=== PATIENT | female | born 1945 | race Caucasian/White ===

== ENCOUNTER 2018-07-30 01:12 | Emergency (ER) | payer MEDICARE ==
[~2018-07-30] VITALS: Ht 157.5 cm; Wt 80.0 kg
[~2018-07-30 01:12] MED LIST: ALTACE5 M1 PO; BUFFERIN LOW81 MG PO; GARLIC1000 MG OR; GLYCRON6 MG OR; IRON325 MG OR; MAXZIDE-2537.5 MG/TA PO; METFORMIN1000 MG PO; MOBIC7.5 MG PO; MULT VITAMIN OR; PRAVASTATIN80 MG PO; TYLENOL500 MG OR; tylenol#3 OR
[2018-07-30 01:34] LABS: HEMATOCRIT 36.2 % (37.0-47.0); HEMOGLOBIN 12.3 g/dl (12.0-16.0); IMMATURE GRANULOCYTES 0.4 % (0.0-5.0); MEAN CELL VOLUME 89.8 fL CALC (80.0-100.0); MEAN CORPUSCULAR HGB 30.5 pG CALC (26.0-32.0); NEUT# 6.67 thou/uL (2.00-7.15); RED BLOOD COUNT 4.03 mill/uL (4.20-5.60); RED CELL DISTRI WIDTH 12.9 % (11.5-15.5)
[2018-07-30] MEDS ORDERED: DILTIAZEM HCL240 MG PO (01:39)
[2018-07-30] MEDS ORDERED: LOSARTAN POT50 MG PO (01:40)
[2018-07-30] MEDS ORDERED: FUROSEMIDE20 MG PO (01:40)
[2018-07-30] MEDS ORDERED: WARFARIN3 MG PO (01:40)
[2018-07-30] MEDS ORDERED: LEVEMIR FL100 UNIT/M SC (01:42)
[2018-07-30 01:46] LABS: ALBUMIN 3.4 g/dL (3.2-5.0); BILIRUBIN, TOTAL 0.6 mg/dL (0.0-1.4); CREATININE 1.9 mg/dL (0.5-1.0); POTASSIUM 4.2 mmol/l (3.5-5.1); TOTAL PROTEIN 5.8 g/dL (6.3-8.2)
[2018-07-30 01:51] LABS: ACT PARTIAL THROMBO TIME 23.4 SECONDS (20.0-32.5); INTERNATIONAL NORMALIZED RATIO 0.9 RATIO (0.7-1.3); PROTHROMBIN TIME 9.5 SECONDS (9.0-12.5)
[2018-07-30 02:40] VITALS: BP 209/100
== END 2018-07-30 03:00 | disposition short-term general hospital (02) ==
LOC: ED 01:12
PROVIDERS: Emergency Medicine
DX: I16.0 Hypertensive urgency (principal); I11.0 Hypertensive heart disease with heart failure; I50.9 Heart failure, unspecified; R74.8 Abnormal levels of other serum enzymes; E11.9 Type 2 diabetes mellitus without complications; R06.02 Shortness of breath

== ENCOUNTER → 2018-09-03 | Outpatient (REF) | payer MEDICARE ==
[~2018-09-03] MED LIST changes: +DILTIAZEM HCL240 MG PO; +FUROSEMIDE20 MG PO; +LEVEMIR FL100 UNIT/M SC; +LOSARTAN POT50 MG PO; +WARFARIN3 MG PO
[2018-09-03 08:11] LABS: HEMATOCRIT 33.1 % (37.0-47.0); HEMOGLOBIN 11.2 g/dl (12.0-16.0); IMMATURE GRANULOCYTES 0.4 % (0.0-5.0); MEAN CORPUSCULAR HGB 30.1 pG CALC (26.0-32.0); MEAN CORPUSCULAR HGB CONC 33.8 g/L CALC (32.0-36.0); NEUT# 5.25 thou/uL (2.00-7.15); RED BLOOD COUNT 3.72 mill/uL (4.20-5.60); RED CELL DISTRI WIDTH 12.7 % (11.5-15.5)
[2018-09-03 08:54] LABS: URINE BILIRUBIN - DIPSTICK NEGATIVE (NEGATIVE); URINE BLOOD DIPSTICK NEGATIVE (NEGATIVE); URINE CLARITY CLEAR; URINE COLOR YELLOW; URINE GLUCOSE - DIPSTICK NEGATIVE (NEGATIVE); URINE KETONE NEGATIVE (NEGATIVE); URINE LEUK ESTERASE TRACE (Negative); URINE NITRITE - DIPSTICK NEGATIVE (Negative); URINE PH 5.5 (4.5-8.0); URINE PROTEIN - DIPSTICK >=300 mg/dL (NEG-TRACE); URINE UROBILINOGEN - DIPSTICK 0.2 E.U./dL (0.2)
[2018-09-03 09:03] LABS: URINE RBC 0-2 RBC/hpf (0-5); URINE SQUAMOUS EPITHELIAL CELL FEW EPI/hpf (0-FEW)
[2018-09-03 09:04] LABS: URINE BACTERIA FEW hpf
[2018-09-03 09:16] LABS: ALBUMIN 3.6 g/dL (3.2-5.0); POTASSIUM 4.1 mmol/l (3.5-5.1)
== END | disposition home or self-care (01) ==
LOC: LAB 07:36
PROVIDERS: ATTEND Internal Medicine Nephrology
DX: N18.3 Chronic kidney disease, stage 3 (moderate) (principal); D63.1 Anemia in chronic kidney disease; N25.81 Secondary hyperparathyroidism of renal origin

== ENCOUNTER 2018-12-22 17:25 | Observation (INO) | payer MEDICARE ==
[~2018-12-22] VITALS: Ht 157.5 cm; Wt 79.5 kg
[2018-12-22] MEDS ORDERED: COUMADIN5 MG PO (17:45)
[2018-12-22] MEDS ORDERED: LEVEMIR100 UNIT/M SC (17:45)
[2018-12-22] MEDS ORDERED: VITAMIN B-12500 MCG PO (17:48)
[2018-12-22 17:59] LABS: HEMATOCRIT 31.9 % (37.0-47.0); HEMOGLOBIN 10.9 g/dl (12.0-16.0); IMMATURE GRANULOCYTES 0.4 % (0.0-5.0); MEAN CELL VOLUME 85.8 fL CALC (80.0-100.0); MEAN CORPUSCULAR HGB 29.3 pG CALC (26.0-32.0); MEAN CORPUSCULAR HGB CONC 34.2 g/L CALC (32.0-36.0); NEUT# 5.86 thou/uL (2.00-7.15); RED BLOOD COUNT 3.72 mill/uL (4.20-5.60); RED CELL DISTRI WIDTH 12.4 % (11.5-15.5)
[2018-12-22 18:15] LABS: ALBUMIN 3.9 g/dL (3.2-5.0); BILIRUBIN, TOTAL 0.4 mg/dL (0.0-1.4); CREATININE 2.2 mg/dL (0.5-1.0); POTASSIUM 3.9 mmol/l (3.5-5.1); TOTAL PROTEIN 6.3 g/dL (6.3-8.2)
[2018-12-22] MEDS ORDERED: FERRAPLUS 90 PO (18:24)
[2018-12-22] MEDS ORDERED: CENTRUM PO (18:25)
[2018-12-22] MEDS ORDERED: CARVEDILOL25 MG PO (18:27)
[2018-12-22] MEDS ORDERED: TYLENOL 500MG TAB PO (18:27)
[2018-12-22] MEDS ORDERED: HYDRALAZINE25 MG PO (18:28)
[2018-12-22] MEDS ORDERED: DILT-XR240 MG PO (18:29)
[2018-12-22] MEDS ORDERED: FUROSEMIDE20 MG PO (18:29)
[2018-12-22 18:30] LABS: INTERNATIONAL NORMALIZED RATIO 1.4 RATIO (0.7-1.3); PROTHROMBIN TIME 14.7 SECONDS (9.0-12.5)
[2018-12-22 18:49] LABS: URINE BILIRUBIN - DIPSTICK NEGATIVE (NEGATIVE); URINE BLOOD DIPSTICK TRACE-INTACT (NEGATIVE); URINE COLOR YELLOW; URINE GLUCOSE - DIPSTICK >=1000 mg/dL (NEGATIVE); URINE KETONE NEGATIVE (NEGATIVE); URINE LEUK ESTERASE NEGATIVE (NEGATIVE); URINE NITRITE - DIPSTICK NEGATIVE (Negative); URINE PH 5.5 (4.5-8.0); URINE PROTEIN - DIPSTICK 100 mg/dL (NEG-TRACE); URINE UROBILINOGEN - DIPSTICK 0.2 E.U./dL (0.2)
[2018-12-22 18:58] LABS: URINE SQUAMOUS EPITHELIAL CELL FEW EPI/hpf (0-FEW); URINE WBC 0-2 WBC/hpf (0-5)
[2018-12-22 20:48] VITALS: BP 142/57
[2018-12-23 04:00] VITALS: BP 159/69
[2018-12-23 05:27] LABS: INTERNATIONAL NORMALIZED RATIO 1.5 RATIO (0.7-1.3); PROTHROMBIN TIME 15.6 SECONDS (9.0-12.5)
[2018-12-23 07:47] VITALS: BP 158/68
[2018-12-23 08:08] VITALS: BP 158/68
== END 2018-12-23 14:40 | disposition home or self-care (01) ==
LOC: ED 17:25 → ED-I 18:53 → ED 19:09 → MS2 19:10
PROVIDERS: Emergency Medicine; ADMIT Internal Medicine; ATTEND Internal Medicine
DX: E11.65 Type 2 diabetes mellitus with hyperglycemia (principal); E11.22 Type 2 diabetes mellitus with diabetic chronic kidney disease; I12.9 Hypertensive chronic kidney disease with stage 1 through stage 4 chronic kidney disease, or unspecified chronic kidney disease; N18.3 Chronic kidney disease, stage 3 (moderate); E11.40 Type 2 diabetes mellitus with diabetic neuropathy, unspecified; I25.10 Atherosclerotic heart disease of native coronary artery without angina pectoris; M19.90 Unspecified osteoarthritis, unspecified site; I48.2 Chronic atrial fibrillation; E78.5 Hyperlipidemia, unspecified; R80.9 Proteinuria, unspecified; I25.2 Old myocardial infarction; Z91.11 Patient's noncompliance with dietary regimen; Z79.4 Long term (current) use of insulin

== ENCOUNTER 2018-12-25 18:40 | Emergency (ER) | payer MEDICARE ==
[~2018-12-25] VITALS: Ht 157.5 cm; Wt 75.0 kg
[~2018-12-25 18:40] MED LIST changes: +CARVEDILOL25 MG PO; +CENTRUM PO; +COUMADIN5 MG PO; +DILT-XR240 MG PO; +FERRAPLUS 90 PO; +HYDRALAZINE25 MG PO; +LEVEMIR100 UNIT/M SC; +TYLENOL 500MG TAB PO; +VITAMIN B-12500 MCG PO
[2018-12-25 19:26] LABS: HEMATOCRIT 29.8 % (37.0-47.0); HEMOGLOBIN 10.2 g/dl (12.0-16.0); IMMATURE GRANULOCYTES 0.4 % (0.0-5.0); MEAN CELL VOLUME 86.9 fL CALC (80.0-100.0); MEAN CORPUSCULAR HGB 29.7 pG CALC (26.0-32.0); MEAN CORPUSCULAR HGB CONC 34.2 g/L CALC (32.0-36.0); NEUT# 4.99 thou/uL (2.00-7.15); RED BLOOD COUNT 3.43 mill/uL (4.20-5.60); RED CELL DISTRI WIDTH 12.7 % (11.5-15.5)
[2018-12-25 19:36] LABS: INTERNATIONAL NORMALIZED RATIO 1.8 RATIO (0.7-1.3)
[2018-12-25 19:38] LABS: ALBUMIN 3.3 g/dL (3.2-5.0); BILIRUBIN, TOTAL 0.3 mg/dL (0.0-1.4); CREATININE 2.2 mg/dL (0.5-1.0); POTASSIUM 4.2 mmol/l (3.5-5.1); TOTAL PROTEIN 5.4 g/dL (6.3-8.2)
[2018-12-25 21:41] LABS: URINE BILIRUBIN - DIPSTICK NEGATIVE (NEGATIVE); URINE BLOOD DIPSTICK NEGATIVE (NEGATIVE); URINE COLOR YELLOW; URINE GLUCOSE - DIPSTICK 250 mg/dL (NEGATIVE); URINE KETONE NEGATIVE (NEGATIVE); URINE LEUK ESTERASE NEGATIVE (NEGATIVE); URINE NITRITE - DIPSTICK NEGATIVE (Negative); URINE PROTEIN - DIPSTICK 100 mg/dL (NEG-TRACE); URINE SPECIFIC GRAVITY 1.015; URINE UROBILINOGEN - DIPSTICK 0.2 E.U./dL (0.2)
[2018-12-25 21:42] LABS: URINE EPITHELIAL CELLS FEW EPI/hpf (0-FEW); URINE MUCUS MODERATE hpf (NONE-FEW)
[2018-12-25 22:16] VITALS: BP 156/68
== END 2018-12-25 22:39 | disposition home or self-care (01) ==
LOC: ED 18:40
PROVIDERS: Family Medicine
DX: E11.65 Type 2 diabetes mellitus with hyperglycemia (principal); I10 Essential (primary) hypertension; I25.2 Old myocardial infarction; Z79.4 Long term (current) use of insulin

== ENCOUNTER 2020-07-18 21:34 | Emergency (ER) | payer MEDICARE ==
[~2020-07-18] VITALS: Ht 157.5 cm; Wt 94.0 kg
[2020-07-18] MEDS ORDERED: LEVEMIR100 UNIT/M SC (22:18)
[2020-07-18 22:22] LABS: HEMATOCRIT 26.5 % (37.0-47.0); HEMOGLOBIN 8.7 g/dl (12.0-16.0); IMMATURE GRANULOCYTES 0.6 % (0.0-5.0); MEAN CELL VOLUME 91.7 fL CALC (80.0-100.0); MEAN CORPUSCULAR HGB 30.1 pG CALC (26.0-32.0); MEAN CORPUSCULAR HGB CONC 32.8 g/dL CAL (32.0-36.0); NEUT# 7.48 thou/uL (2.00-7.15); RED BLOOD COUNT 2.89 mill/uL (4.20-5.60); RED CELL DISTRI WIDTH 13.2 % (11.5-15.5)
[2020-07-18 22:41] LABS: ALBUMIN 3.7 g/dL (3.2-5.0); BILIRUBIN, TOTAL 0.4 mg/dL (0.0-1.4); CREATININE 2.9 mg/dL (0.5-1.0); POTASSIUM 4.5 mmol/l (3.5-5.1); TOTAL PROTEIN 5.8 g/dL (6.3-8.2)
[2020-07-18 22:44] LABS: PROTHROMBIN TIME 9.9 SECONDS (9.0-12.5)
[2020-07-19] MEDS ORDERED: MECLIZINE25 MG PO (02:06)
[2020-07-19 08:15] VITALS: BP 154/66
== END 2020-07-19 08:15 | disposition home or self-care (01) ==
LOC: ED 21:34
PROVIDERS: Family Medicine
DX: R42 Dizziness and giddiness (principal); E11.9 Type 2 diabetes mellitus without complications; I10 Essential (primary) hypertension; I48.91 Unspecified atrial fibrillation; I25.2 Old myocardial infarction; Z79.4 Long term (current) use of insulin

== ENCOUNTER 2020-12-08 04:22 | Emergency (ER) | payer MEDICARE ==
[~2020-12-08] VITALS: Ht 157.5 cm; Wt 95.0 kg
[~2020-12-08 04:22] MED LIST changes: -COUMADIN5 MG PO; +MECLIZINE25 MG PO; +WARFARIN5 MG PO
[2020-12-08] MEDS ORDERED: WARFARIN5 MG PO (04:47)
[2020-12-08] MEDS ORDERED: TRAMADOL HCL50 MG PO (05:40)
[2020-12-08 05:55] VITALS: BP 189/58
== END 2020-12-08 06:30 | disposition home or self-care (01) ==
LOC: ED 04:22
DX: M25.562 Pain in left knee (principal); E11.9 Type 2 diabetes mellitus without complications; I10 Essential (primary) hypertension; I48.91 Unspecified atrial fibrillation; I25.2 Old myocardial infarction; Z86.14 Personal history of Methicillin resistant Staphylococcus aureus infection; Z79.4 Long term (current) use of insulin; Z96.652 Presence of left artificial knee joint

== ENCOUNTER 2021-08-13 18:05 | Emergency (ER) | payer MEDICARE ==
[~2021-08-13] VITALS: Ht 157.5 cm; Wt 86.0 kg
[~2021-08-13 18:05] MED LIST changes: +LEVEMIR100 UNIT SC; +TRAMADOL HCL50 MG PO
[2021-08-13 19:00] LABS: HEMATOCRIT 28.9 % (37.0-47.0); HEMOGLOBIN 9.7 g/dl (12.0-16.0); IMMATURE GRANULOCYTES 0.2 % (0.0-5.0); MEAN CELL VOLUME 89.5 fL CALC (80.0-100.0); MEAN CORPUSCULAR HGB CONC 33.6 g/dL CAL (32.0-36.0); RED BLOOD COUNT 3.23 mill/uL (4.20-5.60)
[2021-08-13 19:01] LABS: URINE BILIRUBIN - DIPSTICK NEGATIVE (NEGATIVE); URINE BLOOD DIPSTICK TRACE-INTACT (NEGATIVE); URINE COLOR YELLOW; URINE GLUCOSE - DIPSTICK NEGATIVE (NEGATIVE); URINE KETONE NEGATIVE (NEGATIVE); URINE PH 5.5 (4.5-8.0); URINE PROTEIN - DIPSTICK 100 mg/dL (NEG-TRACE); URINE UROBILINOGEN - DIPSTICK 0.2 E.U./dL (0.2)
[2021-08-13 19:02] LABS: URINE LEUK ESTERASE SMALL (NEGATIVE); URINE NITRITE - DIPSTICK NEGATIVE (Negative)
[2021-08-13 19:12] LABS: URINE SQUAMOUS EPITHELIAL CELL FEW EPI/hpf (0-FEW)
[2021-08-13 19:19] LABS: ALBUMIN 3.6 g/dL (3.2-5.0); BILIRUBIN, TOTAL 0.5 mg/dL (0.0-1.4); CREATININE 3.3 mg/dL (0.5-1.0); POTASSIUM 4.1 mmol/l (3.5-5.1); TOTAL PROTEIN 6.3 g/dL (6.3-8.2)
[2021-08-13 19:41] LABS: INTERNATIONAL NORMALIZED RATIO 3.8 RATIO (0.7-1.3); PROTHROMBIN TIME 36.2 SECONDS (9.0-12.5)
[2021-08-13] MEDS ORDERED: ZOFRAN4 MG/TAB PO (20:44)
[2021-08-13] MEDS ORDERED: KEFLEX500 MG PO (20:44)
[2021-08-13] MEDS ORDERED: ULTRAM50 MG PO ×2 (20:44→21:23)
[2021-08-13 21:15] VITALS: BP 177/75
== END 2021-08-13 21:15 | disposition home or self-care (01) ==
LOC: ED 18:05
PROVIDERS: Family Medicine
DX: N39.0 Urinary tract infection, site not specified (principal); B96.20 Unspecified Escherichia coli [E. coli] as the cause of diseases classified elsewhere; N28.9 Disorder of kidney and ureter, unspecified; D64.9 Anemia, unspecified; I10 Essential (primary) hypertension; E11.9 Type 2 diabetes mellitus without complications; I25.2 Old myocardial infarction; I48.91 Unspecified atrial fibrillation; Z86.14 Personal history of Methicillin resistant Staphylococcus aureus infection; Z79.4 Long term (current) use of insulin

== ENCOUNTER 2021-08-20 17:19 | Emergency (ER) | payer MEDICARE ==
[~2021-08-20] VITALS: Ht 157.5 cm; Wt 87.0 kg
[~2021-08-20 17:19] MED LIST changes: +KEFLEX500 MG PO; +ULTRAM50 MG PO; +ZOFRAN4 MG/TAB PO
[2021-08-20 19:05] LABS: IMMATURE GRANULOCYTES 0.6 % (0.0-5.0); MEAN CORPUSCULAR HGB 30.9 pG CALC (26.0-32.0); MEAN CORPUSCULAR HGB CONC 32.1 g/dL CAL (32.0-36.0); NEUT# 8.79 thou/uL (2.00-7.15); RED BLOOD COUNT 1.65 mill/uL (4.20-5.60); RED CELL DISTRI WIDTH 17.6 % (11.5-15.5)
[2021-08-20 19:07] LABS: HEMOGLOBIN 5.1 g/dl (12.0-16.0); MEAN CELL VOLUME 96.4 fL CALC (80.0-100.0)
[2021-08-20 19:08] LABS: HEMATOCRIT 15.9 % (37.0-47.0)
[2021-08-20 19:19] LABS: ACT PARTIAL THROMBO TIME 33.5 SECONDS (20.0-32.5); INTERNATIONAL NORMALIZED RATIO 3.5 RATIO (0.7-1.3); PROTHROMBIN TIME 33.5 SECONDS (9.0-12.5)
[2021-08-20 19:32] LABS: ALBUMIN 3.2 g/dL (3.2-5.0); BILIRUBIN, TOTAL 0.3 mg/dL (0.0-1.4); MAGNESIUM 1.9 mg/dL (1.6-2.3); POTASSIUM 4.2 mmol/l (3.5-5.1); TOTAL PROTEIN 5.7 g/dL (6.3-8.2)
[2021-08-20 19:34] LABS: CREATININE 4.5 mg/dL (0.5-1.0)
[2021-08-20 20:43] LABS: URINE BILIRUBIN - DIPSTICK NEGATIVE (NEGATIVE); URINE BLOOD DIPSTICK SMALL (NEGATIVE); URINE COLOR YELLOW; URINE GLUCOSE - DIPSTICK NEGATIVE (NEGATIVE); URINE KETONE NEGATIVE (NEGATIVE); URINE PH 5.5 (4.5-8.0); URINE PROTEIN - DIPSTICK TRACE mg/dL (NEG-TRACE); URINE SPECIFIC GRAVITY 1.025; URINE UROBILINOGEN - DIPSTICK 0.2 E.U./dL (0.2)
[2021-08-20 20:44] LABS: URINE LEUK ESTERASE SMALL (NEGATIVE); URINE NITRITE - DIPSTICK NEGATIVE (Negative)
[2021-08-20 20:57] LABS: URINE AMORPH SEDIMENT MANY hpf (NONE-FEW); URINE SQUAMOUS EPITHELIAL CELL FEW EPI/hpf (0-FEW)
[2021-08-20 21:12] VITALS: BP 157/62
[2021-08-20 21:18] VITALS: BP 168/64
[2021-08-20 21:30] VITALS: BP 168/64
--- NOTE | 2021-08-22 08:40 | NUR ---
PATIENT WAS TRANSFERRED TO [facility] ON 08/20. RECEIVED CULTURE AND SENSITIVITY BACK TODAY, 08/22. FAXED C&S TO [facility] AT .
== END 2021-08-20 21:34 ==
LOC: ED 17:19
PROC: 30233N1 Transfusion of Nonautologous Red Blood Cells into Peripheral Vein, Percutaneous Approach (ICD-10-PCS; principal; 2021-08-20)
DX: K92.2 Gastrointestinal hemorrhage, unspecified (principal); D62 Acute posthemorrhagic anemia; N19 Unspecified kidney failure; I10 Essential (primary) hypertension; E11.9 Type 2 diabetes mellitus without complications; I48.91 Unspecified atrial fibrillation; E66.9 Obesity, unspecified; I25.2 Old myocardial infarction; R82.71 Bacteriuria; Z79.01 Long term (current) use of anticoagulants; Z79.4 Long term (current) use of insulin; Z20.822 Contact with and (suspected) exposure to COVID-19
CPT/HCPCS: P9016; S0164

== ENCOUNTER 2021-12-30 12:00 | Emergency (ER) | payer MEDICARE ==
[~2021-12-30] VITALS: Ht 157.5 cm; Wt 79.5 kg
[2021-12-30 12:40] VITALS: BP 170/52
== END 2021-12-30 12:56 | disposition home or self-care (01) ==
LOC: ED 12:00
DX: T82.838A Hemorrhage due to vascular prosthetic devices, implants and grafts, initial encounter (principal); I12.0 Hypertensive chronic kidney disease with stage 5 chronic kidney disease or end stage renal disease; E11.22 Type 2 diabetes mellitus with diabetic chronic kidney disease; N18.6 End stage renal disease; Z99.2 Dependence on renal dialysis; Z79.4 Long term (current) use of insulin; I25.2 Old myocardial infarction; I48.91 Unspecified atrial fibrillation; Y83.2 Surgical operation with anastomosis, bypass or graft as the cause of abnormal reaction of the patient, or of later complication, without mention of misadventure at the time of the procedure

== ENCOUNTER 2022-05-18 05:49 | Emergency (ER) | payer MEDICARE ==
[~2022-05-18] VITALS: Ht 154.9 cm; Wt 94.0 kg
[2022-05-18 05:52] VITALS: BP 158/71
[2022-05-18 06:01] VITALS: BP 179/59
[2022-05-18] MEDS ORDERED: BUMETANIDE1 MG PO (06:12)
[2022-05-18 06:16] VITALS: BP 184/63
[2022-05-18] MEDS ORDERED: PRAVASTATIN SOD80 MG PO (06:16)
[2022-05-18] MEDS ORDERED: PANTOPRAZOLE SO40 M3 PO (06:17)
[2022-05-18 06:31] VITALS: BP 168/65
[2022-05-18] MEDS ORDERED: VOLTAREN1%GEL TOP (08:14)
[2022-05-18 08:21] VITALS: BP 168/65
== END 2022-05-18 08:44 | disposition home or self-care (01) ==
LOC: ED 05:49
DX: M54.50 Low back pain, unspecified (principal); M25.552 Pain in left hip; E11.9 Type 2 diabetes mellitus without complications; I10 Essential (primary) hypertension; I25.2 Old myocardial infarction; I48.91 Unspecified atrial fibrillation; Z79.4 Long term (current) use of insulin

== ENCOUNTER 2022-06-02 00:09 | Inpatient (IN) | payer MEDICARE ==
[2022-06-02] VITALS (8 sets, daily range): BP systolic 150–209; BP diastolic 53–75
[~2022-06-02] VITALS: Ht 154.9 cm; Wt 92.2 kg
[~2022-06-02 00:09] MED LIST changes: +BUMETANIDE1 MG PO; +PANTOPRAZOLE SO40 M3 PO; +PRAVASTATIN SOD80 MG PO; +VOLTAREN1%GEL TOP
[2022-06-02 00:46] LABS: HEMATOCRIT 26.5 % (37.0-47.0); HEMOGLOBIN 8.6 g/dl (12.0-16.0); IMMATURE GRANULOCYTES 0.2 % (0.0-5.0); MEAN CELL VOLUME 91.1 fL CALC (80.0-100.0); MEAN CORPUSCULAR HGB 29.6 pG CALC (26.0-32.0); MEAN CORPUSCULAR HGB CONC 32.5 g/dL CAL (32.0-36.0); NEUT# 7.44 thou/uL (2.00-7.15); RED BLOOD COUNT 2.91 mill/uL (4.20-5.60); RED CELL DISTRI WIDTH 14.8 % (11.5-15.5)
[2022-06-02 00:57] LABS: ALBUMIN 3.8 g/dL (3.2-5.0); BILIRUBIN, TOTAL 0.3 mg/dL (0.0-1.4); CREATININE 3.8 mg/dL (0.5-1.0); POTASSIUM 4.5 mmol/l (3.5-5.1); TOTAL PROTEIN 6.3 g/dL (6.3-8.2)
[2022-06-02] MEDS ORDERED: NAPROXEN500 MG PO (02:47)
[2022-06-02 03:04] LABS: URINE BILIRUBIN - DIPSTICK NEGATIVE (NEGATIVE); URINE BLOOD DIPSTICK TRACE-INTACT (NEGATIVE); URINE COLOR YELLOW; URINE GLUCOSE - DIPSTICK NEGATIVE (NEGATIVE); URINE PH 5.5 (4.5-8.0); URINE PROTEIN - DIPSTICK 30 mg/dL (NEG-TRACE); URINE UROBILINOGEN - DIPSTICK 0.2 E.U./dL (0.2)
[2022-06-02 03:05] LABS: URINE LEUK ESTERASE SMALL (NEGATIVE); URINE NITRITE - DIPSTICK NEGATIVE (Negative)
[2022-06-02 03:06] LABS: URINE KETONE NEGATIVE (NEGATIVE)
[2022-06-02 03:13] LABS: URINE BACTERIA MANY hpf; URINE EPITHELIAL CELLS MODERATE EPI/hpf (0-FEW); URINE MUCUS FEW hpf (NONE-FEW); URINE WBC 20-50 WBC/hpf (0-5)
--- NOTE | 2022-06-02 04:40 | NUR ---
PT ARRIVE TO UNIT VIA STRETCHER ACCPONPANIED BY ER STAFF. A&O X3 ABLE TO MAKE NEED KNOW. PT HAS BILATERAL PITTING EDEMA +4. PT REPORT SOME TIMES HER LEG WEEP. PT HAS REDNESS ON L AND R SIDE GROIN SKIN FOLDS PITCURES ON CHART. IV TO RAC SL PATENT AND FLUSHES WELL. ASSESMET COMPLETED. ORIENTED TO ROOM AND CALL LIGHT SYSTEM. HX MRSA. SAMPLE OBTAIN AND SEND TO LAB. CALL LIGHT IN REACH AND BE DIN LOWEST POSITION.
--- NOTE | 2022-06-02 04:43 | NUR ---
REPORT GIVEN TO
--- NOTE | 2022-06-02 07:48 | NUR ---
PT RESTING IN HIGH FOWLERS POSITION. A/OX3 ASSESSMENT AND VS COMPLETED. IV SITE NOTED TO RAC NOTED ALL SAFETY PRECAUTIONS IN PLACE WITH CALL LIGHT IN REACH.
[2022-06-02 10:44] LABS: PROTHROMBIN TIME > 170.9 SECONDS (9.0-12.5)
--- NOTE | 2022-06-02 10:47 | NUR ---
LAB CALLED FLOOR FOR PROTIME GREATER THAN 170.9 PROVIDERS INFORMED.
--- NOTE | 2022-06-02 12:10 | NUR ---
PT RESTING IN SEMI FOWLERS POSITION PT HAKEEM WRAPS TO BILATERAL LEGS SCDS IN PLACE.
--- NOTE | 2022-06-02 16:01 | NUR ---
PT RESTING IN SEMI FOWLERS POSITION. PT DENIES ADDITIONAL NEEDS AT THE TIME PT ON PURE WICK .
--- NOTE | 2022-06-02 20:43 | NUR ---
PATIENTS SUGAR WAS 342 @2000.
--- NOTE | 2022-06-02 20:49 | NUR ---
PTS GLUCOSE WAS 224 @2000.
[2022-06-03] VITALS (7 sets, daily range): BP systolic 140–196; BP diastolic 47–64
[2022-06-03 06:12] LABS: ALBUMIN 3.6 g/dL (3.2-5.0); CREATININE 3.7 mg/dL (0.5-1.0); POTASSIUM 4.1 mmol/l (3.5-5.1)
--- NOTE | 2022-06-03 07:09 | NUR ---
PT RESTING IN SEMI FOWLERS POSITION. PT A/OX3 ASSESSMENT COMPLETED. PT HEART RHYTHM IRREGUALR PER TELE. IV SITE NOTED TO RFA 22G. PT BM 06/02/22. PT DENIES ADDITIONAL NEEDS AT THE TIME ALL SAFETY PRECAUTIONS IN PLACE WITH CALL LIGHT IN REACH.
[2022-06-03 07:39] LABS: INTERNATIONAL NORMALIZED RATIO 4.1 RATIO (0.7-1.3)
[2022-06-03 07:42] LABS: PROTHROMBIN TIME 38.3 SECONDS (9.0-12.5)
--- NOTE | 2022-06-03 09:39 | NUR ---
RETACRIT CONSULT FROM DR JARRELL - PHARMACY TO DOSE. PT CONTINUES WITH UNCONTROLLED HYPERTENSION, A CONTRAINDICATION FOR RETACRIT. NO RETACRIT GIVEN AT THIS TIME.
--- NOTE | 2022-06-03 11:59 | NUR ---
PT RESTING IN SEMI FOWLERS POSITION. PT HAKEEM BANDAGES REMOVED. PER HEALTHCARE PROF. ALL SAFETY PRECAUTIONS IN PLACE CALL LIGHT INREACH.
--- NOTE | 2022-06-03 16:13 | NUR ---
PT RESTING IN SEMI FOWLERS POSITION DENIES ADDITIONAL NEEDS AT THE TIME ALL SAFETY PRECAUTIONS IN PLACE .
--- NOTE | 2022-06-03 22:08 | NUR ---
CONTACTED REGARDING PTS LEVEMIR 35 UNITS AT NIGHT. INFORMED HIM THAT PT DID RECEIVE A ONE TIME ORDER YESTURDAY. RECEIVED VERBAL CONSENT FROM TO CONTINUE LEVEMIR 35 UNITS AT NIGHT.
--- NOTE | 2022-06-03 23:08 | NUR ---
PT RESTING IN BED HIGH FOWLERS POSITON. A/OX3 ASSESSMENT AND IV SITE ASSESMENT COMPLETED. IV SITE NOTED IN RW, SITE APPEARS HEALTHY. PT ADMINISTERS MEDICATIONS PER EMAR AND EDUCATED ON LEVEMIR MED SCHEDULE. PT DENIES ANY PAIN OR DISCOMFORT AT THIS TIME. CALL LIGHT AND TABLE WITHIN REACH OF PT. BED WHEELS LOCKED AND IN LOWESST POSITION. WILL CONTINUE FOLLOWING CAREPLAN AND MONITOR PT.
[2022-06-04] VITALS (9 sets, daily range): BP systolic 148–188; BP diastolic 49–68
--- NOTE | 2022-06-04 00:39 | NUR ---
PT NOTED IN BED HIGH FOWLERS POSITION SLEEPING. PT SHOWED NO S/S OF DISTRESS OR DISCOMFORT. CALL LIGHT AND BEDSIDE TABLE WITHIN REACH OF PT. BEDWHEELS LOCKED AND IN LOWEST POSITION. WILL CONTINUE TO MONITOR.
--- NOTE | 2022-06-04 04:35 | NUR ---
PT IN BED, REPOSITIONED TO HIGH FOWLERS W/ PILLOW UNDER LEFT SIDE. PT RESTING CALMLY. NO S/S OF DISCOMFORT. PT DENIES ANY PAIN AT THIS TIME. CALL LIGHT WITHIN REACH OF PT. WHEELS LOCKED AND BED IN LOWEST POSITION. WILL CONTINUE TO MONITOR PT AND FOLLOW CARE PLAN.
[2022-06-04 06:54] LABS: ALBUMIN 3.2 g/dL (3.2-5.0); POTASSIUM 3.9 mmol/l (3.5-5.1)
[2022-06-04 07:00] LABS: CREATININE 3.9 mg/dL (0.5-1.0)
[2022-06-04 07:58] LABS: INTERNATIONAL NORMALIZED RATIO 2.3 RATIO (0.7-1.3); PROTHROMBIN TIME 21.7 SECONDS (9.0-12.5)
--- NOTE | 2022-06-04 10:02 | NUR ---
0700 BEDSIDE REPORT RECEIVED FROM DENISSE. PT RESTING IN BED WATCHING TV. NO COMPLAINTS VOICED AT THIS TIME. ALL PERSONAL ITEMS WITHIN REACH. SAFETY PRECAUTIONS IN PLACE. WILL CONTINUE TO MONITOR.
--- NOTE | 2022-06-04 14:00 | NUR ---
GOT REPORT FROM NURSE. RESUMING CARE FOR PATIENT. PATIENT IS AOX3. NO SXS OF DISTRESS OR DISCOMFORT. PATIENT SLEEPING. BED ALARM ON.
--- NOTE | 2022-06-04 16:00 | NUR ---
PATIENT SLEEPING. NO SXS OF DISTRESS OR DISCOMFORT. BED ALARM ON.
--- NOTE | 2022-06-04 19:04 | NUR ---
GAVE SURVEILLANCE SENSOR OPERATOR NURSE TO RESUME CARE.
--- NOTE | 2022-06-04 20:00 | NUR ---
PATIENT RESTING IN BED AT THIS TIME -AWAKE ALERT AND ORIENTEDX3. PATIENT WITH TELE MONITOR IN PLACE-A-FIB 50'S. PATIENT SEVERE SWEELING OF BLE-LEFT GREATER THAN RIGHT. 4+-ENCOURAGED PATIENT OT ELEVATE BLE ON PILLOWS. PUREWICK IN PLACE DRAINING YELLOW URINE.SALINE LOCK TO RIGHT ARM INTACT. STATES THAT SHE DID HAVE BM TODAY. SAFETY PRECAUTIONS REINFORCED. CALL LIGHT IN REACH. WILL CONT TO MONITOR.
[2022-06-05] VITALS (9 sets, daily range): BP systolic 142–178; BP diastolic 49–64
--- NOTE | 2022-06-05 | NUR ---
PATIENT ESTING IN BED WITH HOB ELEVATED. EYES ARE CLOSED AND RESPS ARE EVEN AND UNLABORED. TELE MONITOR IN PLACE. CALL LIGHT IN REACH. WILL CONT TO MONITOR,
--- NOTE | 2022-06-05 04:00 | NUR ---
PATIENT RESTING IN BED WITH HOB ELEVATED-EYES ARE CLOSED AND RESP ARE EVEN AND UNLABORED. TELE MONITOR IN PLACE. PUREWICK IN PLACE AND DRAINING YELLOW URINE, CALL LIGHT IN REACH. WILL CONT TO MONITOR.
[2022-06-05 07:08] LABS: HEMATOCRIT 24.2 % (37.0-47.0); MEAN CORPUSCULAR HGB 29.7 pG CALC (26.0-32.0); MEAN CORPUSCULAR HGB CONC 33.1 g/dL CAL (32.0-36.0); RED BLOOD COUNT 2.69 mill/uL (4.20-5.60)
[2022-06-05 07:20] LABS: ALBUMIN 3.3 g/dL (3.2-5.0); BILIRUBIN, TOTAL 0.4 mg/dL (0.0-1.4); CREATININE 3.8 mg/dL (0.5-1.0); POTASSIUM 3.8 mmol/l (3.5-5.1); TOTAL PROTEIN 5.5 g/dL (6.3-8.2)
[2022-06-05 07:57] LABS: INTERNATIONAL NORMALIZED RATIO 2.2 RATIO (0.7-1.3); PROTHROMBIN TIME 21.6 SECONDS (9.0-12.5)
--- NOTE | 2022-06-05 08:00 | NUR ---
CHIFT CHANGE REPORT,PT AWAKE ALERT AND ORIENTED RESTING IN BED, NO C/O DISCOMFORT, MD REQUEST REPEAT WEIGHT WHICH WAS PERFORMED AND RESULTED 92.4KG, LEGS ARE EDEMATOUS AND ELEVATED ON PILLOWS, BRUISING TO UPPER EXT, TELE MONITOR IN PLACE, CALL REAGAN IN REACH AND BED LOCKED IN LOWEST POSITION
[2022-06-05 11:31] LABS: ALBUMIN 3.3 g/dL (3.2-5.0); CREATININE 3.7 mg/dL (0.5-1.0); POTASSIUM 3.8 mmol/l (3.5-5.1)
--- NOTE | 2022-06-05 11:31 | NUR ---
RESTING IN BED, PUREWICK CATHETER REPOSITIONED AFTER LESLEE-CARE, DR CHRYSTAL CARRILLO WROTE ORDERS.
--- NOTE | 2022-06-05 15:49 | NUR ---
SLEELPING AT THIS TIME, NO SIGN DISTRESS.
--- NOTE | 2022-06-05 16:35 | NUR ---
AWAKE AND ALERT, ALL NEEDS ADDRESS, CALL REAGAN IN REACH.
--- NOTE | 2022-06-05 19:57 | NUR ---
PATIENT REFUSING KNEE BRACE AT THIS TIME
--- NOTE | 2022-06-05 22:56 | NUR ---
PATIENT RESTING BED. NO ACUTE DISTRESS. PATIENT ASKING FOR REGULAR COKE AND ISSA CRACKERS. EDUCATED PATIENT REGARDING SUBSTAINING FROM REGULAR COKE DUE TO THE AMOUNT OF SUGAR BECAUSE PATIENT IS DIABETIC. PATIENT STATES MY PEPSI AT HOME ONLY HAS 50GMS OF SUGAR. THIS NURSE EDUCATED PATIENT THAT 50 GRAMS OF SUGAR IS ALOT FOR A DIABETIC PATIENT. PATIENT STATED SHE STILL WANTED IT. WE CAME TO A COMPROMISE AND PATIENT WAS GIVEN 4 OZ OF REGULAR COKE AND THEN 8 OZ OF DIET COKE AND ISSA CRACKERS.
[2022-06-06] VITALS (9 sets, daily range): BP systolic 141–187; BP diastolic 42–66
--- NOTE | 2022-06-06 00:52 | NUR ---
patient had bowel movement
--- NOTE | 2022-06-06 01:45 | NUR ---
REPORT RECEIVED FROM Tiburcio PENA RN, CARE OF PT ASSUMED AT THIS TIME.
--- NOTE | 2022-06-06 01:46 | NUR ---
report given to Paul ELI
--- NOTE | 2022-06-06 02:00 | NUR ---
PT LAYING IN BED WITH EYES CLOSED, RESPIRATIONS REGULAR AND UNLABORED. NO APPARENT DISTRESS. APPEARS TO BE SLEEPING COMFORTABLY. CALL REAGAN WITHIN REACH.
[2022-06-06 05:57] LABS: HEMOGLOBIN 7.8 g/dl (12.0-16.0); MEAN CELL VOLUME 90.6 fL CALC (80.0-100.0); MEAN CORPUSCULAR HGB 30.7 pG CALC (26.0-32.0); MEAN CORPUSCULAR HGB CONC 33.9 g/dL CAL (32.0-36.0); RED BLOOD COUNT 2.54 mill/uL (4.20-5.60); RED CELL DISTRI WIDTH 15.1 % (11.5-15.5)
--- NOTE | 2022-06-06 06:00 | NUR ---
PT LAYING IN BED WITH EYES CLOSED, RESPIRATIONS REGULAR AND UNLABORED. NO APPARENT DISTRESS. APPEARS TO BE SLEEPING COMFORTABLY. CALL REAGAN WITHIN REACH.
[2022-06-06 06:02] LABS: INTERNATIONAL NORMALIZED RATIO 2.3 RATIO (0.7-1.3); PROTHROMBIN TIME 22.5 SECONDS (9.0-12.5)
[2022-06-06 06:21] LABS: ALBUMIN 3.1 g/dL (3.2-5.0); BILIRUBIN, TOTAL 0.4 mg/dL (0.0-1.4); CREATININE 4.1 mg/dL (0.5-1.0); POTASSIUM 3.7 mmol/l (3.5-5.1); TOTAL PROTEIN 5.2 g/dL (6.3-8.2)
--- NOTE | 2022-06-06 06:59 | NUR ---
REPORT FROM HELEN ELI. ASSUMED PT CARE.
--- NOTE | 2022-06-06 11:32 | NUR ---
DR. BOYD AT BEDSIDE.
--- NOTE | 2022-06-06 15:41 | NUR ---
PT RESTING IN BED. NO APPARENT DISTRESS NOTED. CALL LIGHT WITHIN REACH. WILL CONTINUE TO MONITOR.
--- NOTE | 2022-06-06 23:42 | NUR ---
1899 BEDSIDE REPORT FROM ALCIRA PEREZ. PT RESTING IN BED WATCHING TV. NO COMPLAINTS VOICED AT THIS TIME. SAFETY PRECAUTIONS IN PLACE.
[2022-06-07] VITALS (9 sets, daily range): BP systolic 112–183; BP diastolic 44–52
--- NOTE | 2022-06-07 08:00 | NUR ---
awake in bed; offers no complaints; no apparent distress noted; iv intact; purewick in place draining clear yellow urine; discoloration/scabs noted to ble; plan of care/ am meds explained; call light within reach; will continue to monitor
[2022-06-07 09:24] LABS: HEMATOCRIT 23.4 % (37.0-47.0); HEMOGLOBIN 7.8 g/dl (12.0-16.0); IMMATURE GRANULOCYTES 0.2 % (0.0-5.0); MEAN CELL VOLUME 90.3 fL CALC (80.0-100.0); MEAN CORPUSCULAR HGB 30.1 pG CALC (26.0-32.0); MEAN CORPUSCULAR HGB CONC 33.3 g/dL CAL (32.0-36.0); NEUT# 8.02 thou/uL (2.00-7.15); RED BLOOD COUNT 2.59 mill/uL (4.20-5.60); RED CELL DISTRI WIDTH 15.2 % (11.5-15.5)
[2022-06-07 09:33] LABS: INTERNATIONAL NORMALIZED RATIO 1.9 RATIO (0.7-1.3); PROTHROMBIN TIME 18.4 SECONDS (9.0-12.5)
[2022-06-07 09:35] LABS: ALBUMIN 3.1 g/dL (3.2-5.0); BILIRUBIN, TOTAL 0.5 mg/dL (0.0-1.4); POTASSIUM 3.9 mmol/l (3.5-5.1); TOTAL PROTEIN 5.3 g/dL (6.3-8.2)
--- NOTE | 2022-06-07 12:00 | NUR ---
awake in bed; tele monitor intact; iv intact; purewick intact; call light within reach; will continue to monitor
--- NOTE | 2022-06-07 16:00 | NUR ---
resting in bed with eyes closed; easily aroused; offers no complaints; call light within reach; will continue to monitor
--- NOTE | 2022-06-07 18:30 | NUR ---
awake in bed; no apparent distress noted; tele monitor intact; call light within reach
--- NOTE | 2022-06-07 21:20 | NUR ---
PT IN BED WATCHING TV. DENIES PAIN OR DISCOMFORT. NO S/S OF DISTRESS NOTED. ASSESMENT COMPLETE. CALL LIGHT IN REACH AND BED IN LOWEST POSITION.
[2022-06-08] VITALS (9 sets, daily range): BP systolic 132–181; BP diastolic 46–74
--- NOTE | 2022-06-08 00:54 | NUR ---
PT IN BED RSTING WITH EYES CLOSED BREATHING EVEN AND UNLABORED. NO S/S OF DISTRESS NOTED. CALL LIGHT IN REACH. BED IN LOWEST POSITION.
--- NOTE | 2022-06-08 04:10 | NUR ---
PT IN BED AWAKE WATCHING TV. DENIES PAIN OR DISCOMFORT. NO S/S OF DISTRESS NOTED. CALL LIGHT IN REACH AND BED IN LOWEST POSITION.
[2022-06-08 05:36] LABS: HEMATOCRIT 22.9 % (37.0-47.0); HEMOGLOBIN 7.7 g/dl (12.0-16.0); IMMATURE GRANULOCYTES 0.4 % (0.0-5.0); MEAN CELL VOLUME 90.5 fL CALC (80.0-100.0); MEAN CORPUSCULAR HGB 30.4 pG CALC (26.0-32.0); MEAN CORPUSCULAR HGB CONC 33.6 g/dL CAL (32.0-36.0); NEUT# 7.16 thou/uL (2.00-7.15); RED BLOOD COUNT 2.53 mill/uL (4.20-5.60); RED CELL DISTRI WIDTH 15.2 % (11.5-15.5)
[2022-06-08 05:39] LABS: CREATININE 4.3 mg/dL (0.5-1.0); MAGNESIUM 1.9 mg/dL (1.6-2.3); POTASSIUM 3.4 mmol/l (3.5-5.1)
--- NOTE | 2022-06-08 06:03 | NUR ---
PT BUN 98. PREVIOUS WAS 91 ON 06/07/22.
--- NOTE | 2022-06-08 08:10 | NUR ---
SHIFT CHANGE REPORT, PT AWAKE ALERT AND ORIENTED RESTING IN BED, NO C/O DISCOMFORT, BG AT 0730 =61, PT REFUED TO HAVE SNACK SHE DOES NOT LIKE WHAT WERE OFFERING, WE HAVE NO OJ SO OTHER JUICES WERE OFFERED WHICH SHE REFUSED, WE'LL SERVE BREAKFAST SOON AND RECHECK BG, TELE MONITOR IN PLACE, CALL REAGAN IN REACH AND BED LOCKED IN LOWEST POSITION. PUREWICK IN PLACE WITH CLER PALE YELLOW URINE.
[2022-06-08 08:45] LABS: INTERNATIONAL NORMALIZED RATIO 1.8 RATIO (0.7-1.3); PROTHROMBIN TIME 17.9 SECONDS (9.0-12.5)
--- NOTE | 2022-06-08 12:00 | NUR ---
RESTING IN BED, REFUSED TO BE ASSISTED OOB TO RECLINER, NO NEW COMPLAINS, CONDITION STABLE.
--- NOTE | 2022-06-08 16:00 | NUR ---
SLEEPING, NO SIGN DISCOMFORT.
--- NOTE | 2022-06-08 21:10 | NUR ---
PT IN BED AWAKE WATCHING TV. DENIES PAIN OR [id number] AT THIS TIME, NO S/S OF DISTRESS NOTED. ASSESMENT COMPLETED. CALL LIGHT IN REACH AND BED IN LOWEST POSITION.
--- NOTE | 2022-06-09 | NUR ---
PT IN BED AWAKE WATCHING TV. DENIES PAIN OR DISCOMFORT. NO S/S OF DISTRESS NOTED. CALL LIGHT IN REACH AND BED IN LOWEST POSITION.
--- NOTE | 2022-06-09 00:12 | NUR ---
PATIENT SITTING UP IN BED-AWAKE AND ALERT. EFE BP WAS DONE TO RIGHT ARM-118/70. WILL CONT TO MONITOR.
[2022-06-09 00:14] VITALS: BP 118/70
[2022-06-09 04:14] VITALS: BP 150/63
--- NOTE | 2022-06-09 05:15 | NUR ---
PTS WEIGHT ON WAS 92.2 KG STADING SCALE
[2022-06-09 05:33] LABS: INTERNATIONAL NORMALIZED RATIO 1.8 RATIO (0.7-1.3); PROTHROMBIN TIME 17.4 SECONDS (9.0-12.5)
[2022-06-09 05:44] LABS: ALBUMIN 3.1 g/dL (3.2-5.0); CREATININE 4.4 mg/dL (0.5-1.0); POTASSIUM 3.3 mmol/l (3.5-5.1)
[2022-06-09 06:06] VITALS: BP 152/62
--- NOTE | 2022-06-09 06:14 | NUR ---
RECEIVE CRITICAL LAB FOR BUN OF 100 DR IS AWARE.
--- NOTE | 2022-06-09 07:48 | NUR ---
PT IN BED AWAKE NOTED CONFUSED. PT REORINTED. NO S/S OF DISTRESS NOTED. CALL LIGHT IN REACH AND BED IN LOWEST POSITION.
--- NOTE | 2022-06-09 07:57 | NUR ---
0700 BEDSIDE REPORT RECEIVED FROM REJI SY. PT RESTING QUIETLY IN BED WITH EYES CLOSED. MO SIGNS OF DISTRESS NOTED. ALL PERSONAL ITEMS WITHIN REACH. SAFETY PRECAUTIONS IN PLACE.
[2022-06-09 09:54] VITALS: BP 156/49
--- NOTE | 2022-06-09 15:07 | NUR ---
1415 IV REMOVED WITH TIP INTACT, NO IV RELATED COMPLICATIONS NOTED. TELE REMOVED. DC INSTRUCTIONS EXPLAINED TO PT, PT VERBALIZES UNDERSTANDING AND DENIES QUESTIONS. [facility] WITH [facility] WITH ALL PERSONAL BELONGINGS.
== END 2022-06-09 14:45 | disposition home health service (06) | DRG 291 ==
LOC: ED 00:09 → ED-I 02:40 → ED 03:40 → MS2 03:41
PROVIDERS: Emergency Medicine; Internal Medicine; Internal Medicine Nephrology; Nurse Practitioner Family; ADMIT Internal Medicine; ATTEND Internal Medicine
DX: I13.2 Hypertensive heart and chronic kidney disease with heart failure and with stage 5 chronic kidney disease, or end stage renal disease (principal); I50.31 Acute diastolic (congestive) heart failure; E87.1 Hypo-osmolality and hyponatremia; I48.20 Chronic atrial fibrillation, unspecified; N18.5 Chronic kidney disease, stage 5; N39.0 Urinary tract infection, site not specified; N25.81 Secondary hyperparathyroidism of renal origin; M25.462 Effusion, left knee; E11.22 Type 2 diabetes mellitus with diabetic chronic kidney disease; D63.1 Anemia in chronic kidney disease; I25.10 Atherosclerotic heart disease of native coronary artery without angina pectoris; E78.5 Hyperlipidemia, unspecified; I25.2 Old myocardial infarction; E83.39 Other disorders of phosphorus metabolism; B96.20 Unspecified Escherichia coli [E. coli] as the cause of diseases classified elsewhere; R79.1 Abnormal coagulation profile; T45.515A Adverse effect of anticoagulants, initial encounter; Z96.653 Presence of artificial knee joint, bilateral; Z79.4 Long term (current) use of insulin; Z79.01 Long term (current) use of anticoagulants
CPT/HCPCS: G0378; J1756